=== PATIENT | male | born 1990 | race Caucasian/White ===

== ENCOUNTER 2016-06-15 09:50 | Emergency (ER) | payer BC ==
[2016-06-15 10:11] VITALS: BP 133/65
--- NOTE | 2016-06-15 10:37 | UC ---
Knee Pain HPI - HPI Summary HPI Summary: LEFT KNEE PAIN X 4 DAYS NO KNOW INJURY , BEEN WORK A LOT WITH LOTS OF JUMPING OUT OF THE FORKLIFT GETTING WORSE OVER THE PAST FEW DAYS WITH SEVER SWELLING OF THE LEFT KNEE - History of Current Complaint Chief Complaint: UCLowerExtremity Stated Complaint: LEFT KNEE PAIN Time Seen by Provider: 06/15/16 10:09 Hx Obtained From: Patient Onset/Duration: Gradual Onset, Lasting Days - 4, Worse Since - TODAY Severity Initially: Moderate Severity Currently: Severe Character: Aching, Throbbing Aggravating Factor(s): Movement, Weight Bearing, Prolonged Standing, Stairs Alleviating Factor(s): Nothing Associated Signs And Symptoms: Positive: Swelling Able to Bear Weight: Yes - Allergies/Home Medications Allergies/Adverse Reactions: Allergies Allergy/AdvReac Type Severity Reaction Status Date / Time No Known Allergies Allergy Verified 06/15/16 10:06 Home Medications: Home Medications Ibuprofen TAB* [Advil TAB*] 200 mg PO Q6H PRN 06/15/16 [History Confirmed ] PMH/Surg Hx/FS Hx/Imm Hx Previously Healthy: Yes - Surgical History Surgical History: None - Family History Known Family History: Negative: Diabetes - Social History Alcohol Use: Weekly Substance Use Type: None Substance Use Comment - Amount & Last Used: occ usage Smoking Status (MU): Heavy Every Day Tobacco Smoker Type: Cigarettes Amount Used/How Often: 1/2 PPD Have You Smoked in the Last Year: Yes Household Exposure Type: Cigarettes - Immunization History Most Recent Influenza Vaccination: Not the 2015/2016 Season Most Recent Tetanus Shot: ~2012 Review of Systems Constitutional: Negative Skin: Negative Eyes: Negative ENT: Negative Respiratory: Negative Musculoskeletal: Other: - LEFT KNEE PAIN All Other Systems Reviewed And Are Negative: Yes Physical Exam Triage Information Reviewed: Yes Appearance: Well-Appearing, Well-Nourished, Pain Distress Vital Signs: Initial Vital Signs Temp 98.7 F 06/15/16 10:03 Pulse 72 06/15/16 10:03 Resp 16 06/15/16 10:03 BP 133/65 06/15/16 10:03 Pulse Ox 98 06/15/16 10:03 Vital Signs Reviewed: Yes Eyes: Positive: Conjunctiva Clear ENT: Positive: Normal ENT inspection, Hearing grossly normal, Pharynx normal Neck: Positive: Supple, Nontender, No Lymphadenopathy Respiratory: Positive: Chest non-tender, Lungs clear, Normal breath sounds Cardiovascular: Positive: RRR, No Murmur, Pulses Normal Musculoskeletal: Positive: Other: - LEFT KNEE : SEVER EFFUSION , + SWELLING, + DIFFUSE TENDERNESS, LIMITED ROM ON FLEXION AND EXTENSION . Skin Exam: Normal Knee Pain Course/Dx - Differential Dx/Diagnosis Provider Diagnoses: LEFT KNEE PAIN. LEFT KNEE EFFUSIO Discharge - Discharge Plan Condition: Stable Disposition: HOME Patient Education Materials: Swollen Knee Joint (ED) Referrals: Efrem Foster MD [Medical Doctor] - As Soon As Possible No Primary Care Phys,NOPCP [Primary Care Provider] - Additional Instructions: SEVER KNEE EFFUSION OF LEFT KNEE WILL MAKE A REFERRAL TO [facility] FOR EVAL AND JOINT ASPIRATION
[2016-06-15] MEDS ORDERED: Ibuprofen TAB* 400 MG PO ONE (10:49)
--- NOTE | 2016-06-15 10:53 | RAD ---
HISTORY: Left knee pain COMPARISONS: None VIEWS: 4, Frontal, lateral, axial, and oblique views of the left knee FINDINGS: BONE DENSITY: Normal. BONES: There is no displaced fracture. JOINTS: There is a large suprapatellar joint effusion ALIGNMENT: There is no dislocation. SOFT TISSUES: Unremarkable. OTHER FINDINGS: None. IMPRESSION: JOINT EFFUSION. NO ACUTE OSSEOUS INJURY. IF SYMPTOMS PERSIST, RECOMMEND REPEAT IMAGING.
== END 2016-06-15 10:54 | disposition home or self-care (01) ==
LOC: UCCORT 09:50
DX: M25.462 Effusion, left knee (principal); F17.210 Nicotine dependence, cigarettes, uncomplicated
CPT/HCPCS: 99202; A9270-GY; G0463